=== PATIENT | male | born 1995 | race Caucasian/White ===

== ENCOUNTER 2019-07-12 16:19 | Emergency (ER) | payer SELFPAY ==
[~2019-07-12] VITALS: Ht 190.5 cm; Wt 81.8 kg
[2019-07-12 16:25] VITALS: TEMP 98.7
[2019-07-12] MEDS ORDERED: ADDERALL10 MG PO (16:46)
[2019-07-12 18:35] VITALS: PULSE 82
== END 2019-07-12 18:42 | disposition home or self-care (01) ==
LOC: COL.ER 16:19
DX: S61.210A Laceration without foreign body of right index finger without damage to nail, initial encounter (principal); F90.9 Attention-deficit hyperactivity disorder, unspecified type; Z23 Encounter for immunization; W26.0XXA Contact with knife, initial encounter

== ENCOUNTER 2019-07-19 08:44 | Emergency (ER) | payer SELFPAY ==
[~2019-07-19 08:44] MED LIST: ADDERALL10 MG PO
[2019-07-19 09:01] VITALS: BP 124/72; PULSE 88; TEMP 98.9
== END 2019-07-19 09:04 | disposition home or self-care (01) ==
LOC: COL.ER 08:44
DX: S61.210D Laceration without foreign body of right index finger without damage to nail, subsequent encounter (principal)